=== PATIENT | male | born 1950 | race Asian ===

== ENCOUNTER → 2020-01-17 08:06 | Outpatient (BNVA) | payer MEDICARE, SELFPAY | PROVIDERS: PCP Internal Medicine; Referring Provider Internal Medicine; Visit Provider Internal Medicine | DX: D35.2 Benign neoplasm of pituitary gland (principal); E04.2 Nontoxic multinodular goiter; E23.0 Hypopituitarism; E55.9 Vitamin D deficiency, unspecified; I10 Essential (primary) hypertension; E78.5 Hyperlipidemia, unspecified; Z88.6 Allergy status to analgesic agent; Z79.899 Other long term (current) drug therapy | CPT/HCPCS: 99214 ==

== ENCOUNTER 2020-01-18 07:23 | Outpatient (REF) | payer MEDICARE, SELFPAY ==
[2020-01-18 09:13] LABS: Anion Gap 12 (12-20); Blood Urea Nitrogen 12 mg/dL (9-16); Calcium 9.1 mg/dL (8.4-10.2); Carbon Dioxide 27 mmol/L (22-29); Chloride 100 mmol/L (96-108); Estimated Glomerular Filt Rate > 60; Glucose Random 93 mg/dL (60-115); Potassium 4.5 mmol/l (3.3-5.1); Sodium 134 mmol/L (135-145)
[2020-01-18 09:37] LABS: Free T4 (Free Thyroxine) 0.94 ng/dL (0.71-1.85); Thyroid Stimulating Hormone 2.71 mIU/mL (0.32-4.0); Vitamin D 25-OH Total 27.1 ng/mL (>30)
[2020-01-19 18:02] LABS: Sex Hormone Binding Globulin 35 nmol/L (22-77)
[2020-01-19 20:46] LABS: Triiodothyronine T3 Total 71 ng/dL (76-181)
[2020-01-22 07:37] LABS: Follicle Stimulating Hormone 7.1 mIU/mL (1.6-8.0); Lutenizing Hormone 1.9 mIU/mL (1.6-15.2); Prolactin Undiluted 6.2 ng/mL (2.0-18.0)
[2020-01-22 14:11] LABS: Testosterone, Free 71.7 pg/mL (35.0-155.0); Testosterone, Total 427 ng/dL (250-1100)
== END 2020-01-18 07:24 | disposition home or self-care (01) ==
LOC: HO.LAB 07:23
PROVIDERS: Visit Provider Internal Medicine
DX: E04.2 Nontoxic multinodular goiter (principal); D35.2 Benign neoplasm of pituitary gland; E55.9 Vitamin D deficiency, unspecified
CPT/HCPCS: 80048; 82306; 83001; 83002; 84146; 84270; 84402; 84403; 84439; 84443; 84480

== ENCOUNTER 2020-01-24 12:46 | Outpatient (REF) | payer MEDICARE, SELFPAY ==
--- NOTE | 2020-01-24 13:00 | US_ITS ---
EXAMINATION: US THYROID CLINICAL INFORMATION: Nontoxic multinodular goiter. COMPARISON: Previous thyroid ultrasounds most recent November 2018 TECHNIQUE: Linear transducer pat-scale and color Doppler examination with attention to the region of the thyroid. FINDINGS: SIZE: Measurements of the thyroid lobes and nodules are given in sagittal, anteroposterior and transverse dimensions respectively. Right Thyroid Lobe: 5 x 1.5 x 1.5 cm, volume 5.9 mL. Parenchyma: The gland echotexture is normal. Thyroid vascularity is normal. Left Thyroid Lobe: 4.9 x 1.2 x .5 cm, volume 4.6 mL. Parenchyma: The gland echotexture is normal. Thyroid vascularity is normal. Isthmus: 0.3 cm in maximum AP dimension. RIGHT THYROID LOBE: There are 4 stable nodules. There is a 4 mm cystic nodule in the upper pole. This has smooth margin, peripheral calcification and no intranodular flow. 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 There is a 4 mm heterogeneous nodule in the upper pole. This has smooth margin, no calcification and positive intranodular flow. There is a 1.1 x 0.8 x 1 cm heterogeneous isoechoic nodule in the mid lobe. This has smooth margin, no calcification and positive intranodular flow. There is a 1.2 x 0.9 x 1.2 cm hypoechoic heterogeneous nodule in the inferior lobe. This has smooth margin, no calcification and positive intranodular flow. ISTHMUS: No nodules. LEFT THYROID LOBE: There are 2 stable nodules. There is a 3 x 2 x 2 mm hypoechoic cystic nodule in the mid lobe. This has smooth margin, no calcification and no intranodular flow. There is a 4 x 2 x 4 mm hypoechoic cystic nodule in the mid lobe. This has smooth margin, no calcification and no intranodular flow. NODES: No lymphadenopathy is seen in the tissue surrounding the thyroid gland. US/US thyroid IMPRESSION: Stable bilateral thyroid nodules.
== END 2020-01-24 12:47 | disposition home or self-care (01) ==
LOC: HO.US 12:46
PROVIDERS: PCP Internal Medicine; Visit Provider Internal Medicine
DX: E04.2 Nontoxic multinodular goiter (principal)
CPT/HCPCS: 76536

== ENCOUNTER 2020-01-25 14:52 | Outpatient (REF) | payer MEDICARE, SELFPAY ==
--- NOTE | 2020-01-25 14:56 | MR_ITS ---
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 COMPARISON: None TECHNIQUE: Multiplanar, multisequence MRI of the brain was obtained before and after the intravenous administration of 3.5 mL Gadavist. FINDINGS: Normal. No focal reduced diffusion is seen to suggest acute or subacute cerebral ischemia. No intracranial mass, intracerebral edema, intra-axial blood products, midline shift, or extra-axial collection is visualized. No pathologic enhancement is appreciated on postcontrast sequences. The ventricles and sulcal spaces appear normal. Normal arterial and venous vascular flow voids are present. A small prominent cisterna magna is noted. Pre- and postcontrast imaging of the sella reveals no enhancing or nonenhancing focal or diffuse mass within the sella. Normal homogeneous enhancement of the pituitary gland and pituitary stalk is visualized. The paranasal sinuses are well aerated. MR/MR head/brain wo/w con IMPRESSION: Unremarkable MRI brain with and without contrast. Especially no abnormality seen within the sella or the parasellar structures.
== END 2020-01-25 14:53 | disposition home or self-care (01) ==
LOC: HO.MRI 14:52
PROVIDERS: Visit Provider Internal Medicine
DX: D35.2 Benign neoplasm of pituitary gland (principal)
CPT/HCPCS: 70553; A9585

== ENCOUNTER 2020-09-04 08:06 | Outpatient (REF) | payer MEDICARE, SELFPAY ==
[2020-09-04 10:20] LABS: Anion Gap 10 (12-20); Blood Urea Nitrogen 17 mg/dL (9-16); Calcium 9.3 mg/dL (8.4-10.2); Carbon Dioxide 26 mmol/L (22-29); Chloride 104 mmol/L (96-108); Estimated Glomerular Filt Rate > 60; Glucose Random 96 mg/dL (60-115); Potassium 4.3 mmol/L (3.3-5.1); Sodium 136 mmol/L (135-145)
[2020-09-04 10:40] LABS: Osmolality, Serum 287 mosm/kg (281-305)
[2020-09-04 10:43] LABS: Free T4 (Free Thyroxine) 0.88 ng/dL (0.71-1.85); Thyroid Stimulating Hormone 1.25 uIU/mL (0.32-4.0); Vitamin D 25-OH Total 24.2 ng/mL (>30)
[2020-09-06 19:11] LABS: Triiodothyronine T3 Total 73 ng/dL (76-181)
[2020-09-06 22:03] LABS: Sex Hormone Binding Globulin 35 nmol/L (22-77)
[2020-09-08 14:11] LABS: IGF-1 (Somatomedin C) 170 ng/mL (41-279); IGF-1 Z Score (Male) 0.9 SD (-2.0 - +2.0)
[2020-09-08 16:37] LABS: Testosterone, Free 70.4 pg/mL (35.0-155.0); Testosterone, Total 492 ng/dL (250-1100)
[2020-09-09 21:56] LABS: Follicle Stimulating Hormone 9.1 mIU/mL (1.6-8.0); Lutenizing Hormone 4.1 mIU/mL (1.6-15.2)
[2020-09-09 22:46] LABS: Adrenocorticotropic Hormone 15 pg/mL (6-50)
== END 2020-09-04 08:07 | disposition home or self-care (01) ==
LOC: HO.LAB 08:06
PROVIDERS: PCP Internal Medicine; Visit Provider Internal Medicine
DX: D35.2 Benign neoplasm of pituitary gland (principal); E04.2 Nontoxic multinodular goiter; E23.0 Hypopituitarism; E55.9 Vitamin D deficiency, unspecified; Z79.899 Other long term (current) drug therapy
CPT/HCPCS: 36415; 80048; 82024; 82306; 82533; 83001; 83002; 83930; 84146; 84270; 84305; 84402; 84403; 84439; 84443; 84480; 99212

== ENCOUNTER 2021-03-04 10:38 | Outpatient (REF) | payer MEDICARE, SELFPAY ==
[2021-03-04 12:18] LABS: Blood Urea Nitrogen 16 mg/dL (9-16); Estimated Glomerular Filt Rate > 60
[2021-03-04 12:43] LABS: Free T4 (Free Thyroxine) 0.89 ng/dL (0.71-1.85)
[2021-03-06 05:40] LABS: Sex Hormone Binding Globulin 29 nmol/L (22-77)
[2021-03-07 05:36] LABS: Follicle Stimulating Hormone 8.9 mIU/mL (1.6-8.0); Lutenizing Hormone 2.8 mIU/mL (1.6-15.2); Prolactin Undiluted 9.1 ng/mL (2.0-18.0)
[2021-03-10 15:31] LABS: Testosterone, Free 57.3 pg/mL (35.0-155.0); Testosterone, Total 322 ng/dL (250-1100)
== END 2021-03-04 10:39 | disposition home or self-care (01) ==
LOC: HO.LAB 10:38
PROVIDERS: Visit Provider Internal Medicine
DX: E04.2 Nontoxic multinodular goiter (principal); D35.2 Benign neoplasm of pituitary gland
CPT/HCPCS: 36415; 82565; 83001; 83002; 84146; 84270; 84402; 84403; 84439; 84520

== ENCOUNTER → 2021-03-05 07:39 | Outpatient (BNVA) | payer MEDICARE, SELFPAY | PROVIDERS: PCP Internal Medicine; Visit Provider Internal Medicine | DX: D35.2 Benign neoplasm of pituitary gland (principal); E04.2 Nontoxic multinodular goiter; E23.0 Hypopituitarism; E55.9 Vitamin D deficiency, unspecified | CPT/HCPCS: 99212 ==

== ENCOUNTER 2021-03-07 10:21 | Outpatient (REF) | payer MEDICARE, SELFPAY ==
--- NOTE | ~2021-03-07 | MR_ITS ---
EXAMINATION: MR BRAIN WITHOUT AND WITH CONTRAST CLINICAL INFORMATION: 70-year-old with benign neoplasm of pituitary gland. COMPARISON: 01/25/2020 MRI TECHNIQUE: Multiplanar, multisequence MRI of the brain/sella was obtained before and after the intravenous administration of 3 mL Gadavist. FINDINGS: There is a subtle, small, poorly-marginated 3.5 mm zone of relative hypoenhancement on the left side of the anterior pituitary lobe which is unchanged in appearance from the previous exam. There may be a subtle degree of remodeling of the floor of the sella at this location which is unchanged raising the possibility for a small microadenoma which cannot be confirmed with a high degree of certainty. Remainder of the pituitary gland enhances normally. The infundibulum enhances normally and is normal in thickness, relatively midline, unchanged in appearance. No suprasellar or juxtasellar masses are identified. No focal reduced diffusion is seen to suggest acute or subacute cerebral ischemia. Scattered patchy zones of FLAIR/T2 signal hyperintensity are seen within the subcortical and deeper white matter of both cerebral hemispheres, similar in appearance to the previous study without abnormal enhancement, likely reflecting chronic ischemic microangiopathy. No intracranial mass lesions, abnormal enhancement, space-occupying process or mass effect. The ventricular system and subarachnoid spaces are within normal limits without hydrocephalus with mild generalized diffuse brain parenchymal volume loss, stable in appearance. Normal signal voids are seen in the visualized major intracranial vessels. The visualized orbital structures appear grossly unremarkable within the limitations of the exam. There is nasal septal deviation to the right, stable in appearance, with minor mucosal thickening in the ethmoid complex, unchanged. Osseous marrow signal intensity appears within normal limits, stable in appearance. MR/MR head/brain wo/w con IMPRESSION: 1. 3.5 mm subtle focus of poorly-marginated relative hypoenhancement on the left side of the pituitary gland with possible focal remodeling of the floor of the sella unchanged in appearance from the previous study. Although difficult to say with a high degree of certainty, this could reflect a small microadenoma. 2. 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
== END 2021-03-07 10:22 | disposition home or self-care (01) ==
LOC: HO.MRI 10:21
PROVIDERS: PCP Internal Medicine; Visit Provider Internal Medicine
DX: D35.2 Benign neoplasm of pituitary gland (principal)
CPT/HCPCS: 70553; A9585

== ENCOUNTER 2021-04-11 16:00 | Outpatient (REF) | payer MEDICARE, SELFPAY ==
--- NOTE | ~2021-04-11 | US_ITS ---
EXAMINATION: US THYROID CLINICAL INFORMATION: Nontoxic multinodular goiter. COMPARISON: Ultrasound soft tissue head/neck thyroid dated 01/24/2020 and 12/16/2019. TECHNIQUE: Linear transducer grayscale and color Doppler examination with attention to the region of the thyroid. FINDINGS: SIZE: Measurements of the thyroid lobes and nodules are given in sagittal, anteroposterior and transverse dimensions respectively. Right Thyroid Lobe: 5.0 x 1.4 x 2.3 cm, volume 8.1 mL. Previously 5.0 x 1.5 x 1.5 cm, volume 5.9 mL. Parenchyma: The gland echotexture is homogeneous. Thyroid vascularity is normal. Left Thyroid Lobe: 4.6 x 1.4 x 1.6 cm, volume 5.5 mL. Previously 4.9 x 1.2 x 1.5 cm, volume 4.6 mL. Parenchyma: The gland echotexture is homogeneous. Thyroid vascularity is normal. Isthmus: 0.2 cm in maximum AP dimension. Previously 0.3 cm. Small cystic nodules with TiRad parameters of 0 are not recorded. Estimated total number of nodules greater than or equal to 1 cm: 2. [employer] nodules are described as follows: 1. Location: Right mid. Size: 1.1 x 0.9 x 1.0 cm, volume 0.5 mL. Previously: 1.1 x 0.8 x 1.0 cm, volume 0.5 mL. Nodule characteristics: Composition: Solid (2). Echogenicity: Isoechoic (1). Shape: Not taller than wide (0). Margins: Ill-defined (0). Echogenic Foci: None (0). ACR TI-RADS total points: 3 ACR TI-RADS category: 3 Significant change in size (>/= 20% in 2 dimensions and minimal increase of 2 mm or 50% or greater increase in volume): No Change in features: No Change in ACR TI-RADS risk category: No 2. Location: Right inferior. Size: 1.1 x 1.0 x 1.2 cm, volume 0.7 mL. Previously: 1.2 x 0.9 x 1.2 cm, volume 0.7 mL. Nodule characteristics: Composition: Solid (2). Echogenicity: Isoechoic (1). Shape: Not taller than wide (0). Margins: Smooth (0). Echogenic Foci: None (0). ACR TI-RADS total points: 3 ACR TI-RADS category: 3 Significant change in size (>/= 20% in 2 dimensions and minimal increase of 2 mm or 50% or greater increase in volume): No Change in features: No Change in ACR TI-RADS risk category: No 3. Location: Right superior. Size: 0.5 x 0.3 x 0.4 cm, volume 0.03 mL. Previously: 0.4 x 0.3 x 0.4 cm, volume 0.03 mL. Nodule characteristics: Composition: Mixed cystic and solid (1). Echogenicity: Cannot be determined (1). Shape: Not taller than wide (0). Margins: Smooth (0). Echogenic Foci: None (0). ACR TI-RADS total points: 2 ACR TI-RADS category: 2 Significant change in size (>/= 20% in 2 dimensions and minimal increase of 2 mm or 50% or greater increase in volume): No Change in features: No Change in ACR TI-RADS risk category: No NODES: No lymphadenopathy is seen in the tissue surrounding the thyroid gland. US/US thyroid IMPRESSION: Multiple thyroid nodules largest measuring 1.2 cm with prior studies TI-RADS category TI-RADS 3.. No follow-up recommended. ACR TI-RADS RECOMMENDATION REFERENCE: Ultrasound-guided fine-needle aspiration, followup ultrasound, no further follow up. * TR1 (0 point) and TR 2 (2 points): No FNA or follow up * TR3 (3 points): FNA if more than or equal to 2.5 cm in maximum dimension, followup ultrasound in 1, 3 and 5 years if 1.5 to 2.4 cm in maximum dimension. * TR4 (4-6 points): FNA if more than or equal to 1.5 cm in maximum dimension, followup ultrasound in 1, 2, 3 and 5 years if 1 to 1.4 cm in maximum dimension. * TR5 (more than or equal to 7 points): FNA if more than or equal to 1 cm in maximum dimension, followup ultrasound every year for 5 years if 0.5 to 0.9 cm in maximum dimension. * TR3, TR4 or TR5 nodules that are below the size threshold for follow up receive no follow up.
== END 2021-04-11 16:01 | disposition home or self-care (01) ==
LOC: HO.US 16:00
PROVIDERS: Visit Provider Internal Medicine
DX: E04.2 Nontoxic multinodular goiter (principal)
CPT/HCPCS: 76536